=== PATIENT | female | born 1990 ===

== ENCOUNTER 2023-07-02 09:37 | Outpatient (CLI) ==
[~2023-07-02] VITALS: Ht 180.3 cm; Wt 133.8 kg
[2023-07-02] MEDS ORDERED: PRENTAB9 PO (10:51)
[2023-07-02] MEDS ORDERED: BACI1TAB20 PO (10:51)
[2023-07-02] MEDS ORDERED: ASPI81CH33 PO (10:51)
[2023-07-05] MEDS ORDERED: ACET1TAB55 PO (07:58)
[2023-07-05] MEDS ORDERED: COLA100C5 PO (07:58)
[2023-07-05] MEDS ORDERED: IBUP-1022 PO (07:58)
== END 2023-07-02 11:29 | disposition home or self-care (01) ==
LOC: M LDO 09:37
PROVIDERS: ATTEND Advanced Practice Midwife
DX: O47.1 False labor at or after 37 completed weeks of gestation (principal); Z3A.40 40 weeks gestation of pregnancy
CPT/HCPCS: 59025; 76815; G0463